=== PATIENT | female | born 1990 | race Hispanic/Latino ===

== ENCOUNTER 2019-06-21 12:48 | Emergency (ER) | payer SELFPAY ==
[~2019-06-21] VITALS: Ht 165.1 cm; Wt 59.0 kg
[2019-06-21] MEDS ORDERED: HYDROCODONE/APAP 10MG-325MG TAB PO ONE (13:00)
[2019-06-21] MEDS ORDERED: TETANUS/DIPHTHERIA TOX ADULT 0.5 ML SYR IM ONE (13:00)
--- NOTE | 2019-06-21 13:37 | Diagnostic Imaging Report ---
EXAMINATION: HAND BILATERAL 3 OR MORE VIEWS INDICATION: Trauma, dog bite COMPARISON: None FINDINGS: Right: No acute fracture or dislocation. Alignment appears anatomic. No substantial degenerative change. The soft tissues appear unremarkable. Left: There is an acute mildly displaced comminuted fracture of the distal phalanx of the fifth digit. Overlying soft tissue irregularity consistent with laceration. Mild associated soft tissue swelling. No other acute fracture identified. IMPRESSION: Acute mildly displaced comminuted fracture of the distal phalanx of the left fifth digit. Overlying soft tissue swelling and laceration. Signed by: Tresa Calderon MD on 06/21/2019 1:34 PM
[2019-06-21] MEDS ORDERED: CEFAZOLIN SOD 1 GM VIAL IM SCH (14:00)
[2019-06-21] MEDS ORDERED: LIDOCAINE HCL 1% LOCAL INJ 20 ML VIAL ONE (14:12)
[2019-06-21] MEDS ORDERED: NEOMYCIN/POLYMYX/BACITR OINT 0.9 GM PKT TOP ONE (14:45)
--- NOTE | 2019-06-21 14:45 | NUR ---
pt's suture to left hand cleaned, neosporin applied, nonadherent dressing and finger cot. secured with kerlex. minor cut to left thumb cleaned, neosporin applied and dressed with simple bandaid. small abrasion to right palm cleaned, neosporin applied and dressed with simple bandaid. wound care teaching and instructions given. pt verbalized understanding.
[2019-06-21 15:08] VITALS: BP 126/76
--- OUTSIDE RECORDS SUMMARY | 2019-06-22 14:05 | XMS REPORT ---
[facility] Unknown Phone Unavailable Care Team Providers Care [employer] Name Role Phone Elia SUAREZ Unavailable Unavailable Problems This patient has no known problems. Allergies, Adverse Reactions, Alerts This patient has no known allergies or adverse reactions. Medications This patient has no known medications. Results Test Description Test Time Test Comments Text Results Atomic Results Result Comments HAND BILATERAL 3 OR MORE VIEWS 2019-06-21 13:31:00 [place] [address] Patient Name: LEANN SIMMS MR #: [id number] : 1990 Age/Sex: 28/F Req #: [id number] Adm Physician: Ordered by: ZOE LEDBETTER NP Report #: [id number] Location: ER Room/Bed: Procedure: [id number] DX/HAND BILATERAL 3 OR MORE VIEWS Exam Date: Exam Time: REPORT STATUS: Signed EXAMINATION: HAND BILATERAL 3 OR MORE VIEWS INDICATION: Trauma, dog bite COMPARISON: None FINDINGS: Right: No acute fracture or dislocation. Alignment appears anatomic. No substantial degenerative change. The soft tissues appear unremarkable. Left: There is an acute mildly displaced comminuted fracture of the distal phalanx of the fifth digit. Overlying soft tissue irregularity consistent with laceration. Mild associated soft tissue swelling. No other acute fracture identified. IMPRESSION: Acute mildly displaced comminuted fracture of the distal phalanx of the left fifth digit. Overlying soft tissue swelling and laceration. Signed by: Alin Silva MD on 06/21/2019 1:34 PM Dictated By: ALIN SILVA MD [id number] Transcribed By: JESSICA on 06/21/199 COPY TO: ZOE LEDBETTER NP
== END 2019-06-21 15:11 | disposition home or self-care (01) ==
LOC: ER 12:48
DX: S62.667B Nondisplaced fracture of distal phalanx of left little finger, initial encounter for open fracture (principal); S61.431A Puncture wound without foreign body of right hand, initial encounter; S61.432A Puncture wound without foreign body of left hand, initial encounter; Z23 Encounter for immunization; W54.0XXA Bitten by dog, initial encounter; Y93.K9 Activity, other involving animal care; Y92.009 Unspecified place in unspecified non-institutional (private) residence as the place of occurrence of the external cause
CPT/HCPCS: 73130; 90471; 90714; 99284; J0690; J2001

== ENCOUNTER 2019-10-30 10:15 | Emergency (ER) | payer BC ==
[~2019-10-30] VITALS: Ht 167.6 cm; Wt 61.2 kg
[2019-10-30] MEDS ORDERED: LORAZEPAM 1 MG TAB PO ONE (10:45)
--- NOTE | 2019-10-30 12:12 | Diagnostic Imaging Report ---
EXAM: CHEST SINGLE (PORTABLE) DATE: 10/30/2019 11:30 AM INDICATION: Shortness breath, cough COMPARISON: None FINDINGS: The trachea is midline. The lungs are symmetrically expanded without evidence for large focal consolidation, pneumothorax, or significant pleural effusion. The cardiomediastinal silhouette and pulmonary vasculature are within normal limits. No acute osseous abnormality is identified. The surrounding soft tissues are unremarkable. IMPRESSION: No acute cardiopulmonary process identified. Signed by: Dr. Carlos Sahni MD on 10/30/2019 12:09 PM
[2019-10-30 12:21] VITALS: BP 121/67
== END 2019-10-30 12:34 | disposition home or self-care (01) ==
LOC: ER 10:15
DX: R05 Cough (principal); J20.9 Acute bronchitis, unspecified
CPT/HCPCS: 71045; 99282